=== PATIENT | female | born 1960 | race Caucasian/White ===

== ENCOUNTER 2022-05-01 09:15 | Outpatient (CLI) | payer BC ==
[~2022-05-01] VITALS: Ht 170.1 cm; Wt 85.4 kg
[2022-05-01] MEDS ORDERED: LOSA50TA63 PO (10:32)
[2022-05-01] MEDS ORDERED: FAMO40TA72 PO (10:32)
[2022-05-01] MEDS ORDERED: VNL75T PO (10:32)
== END 2022-05-01 10:56 | disposition home or self-care (01) ==
LOC: PREOP 09:15
PROVIDERS: ATTEND Surgery
DX: Z01.818 Encounter for other preprocedural examination (principal)

== ENCOUNTER 2022-05-03 12:49 | Day surgery (SDC) | payer BC ==
[2022-05-03] VITALS (8 sets, daily range): BP systolic 139–158; BP diastolic 78–93
[~2022-05-03] VITALS: Ht 170.1 cm; Wt 85.4 kg
[~2022-05-03 12:49] MED LIST: FAMO40TA72 PO; LOSA50TA63 PO; VNL75T PO
[2022-05-03] MEDS ORDERED: HYDR-3817 PO (13:00)
[2022-05-03] MEDS ORDERED: PANT40TA2 PO (13:00)
[2022-05-03] MEDS ORDERED: morphine INJ 10 MG/ML 1ML (SYR OR VIAL) IVP PRN (13:00)
[2022-05-03] MEDS ORDERED: ACETAMINOPHEN 325 MG TABLET PO PRN (13:00)
[2022-05-03] MEDS ORDERED: ONDANSETRON 4 MG/2 ML (SDV) Z0FRAN IVP PRN ×2 (13:00→16:30)
[2022-05-03] MEDS ORDERED: HYDROcodone/APAP 5 MG/325 MG (LORTAB) TAB PO ONE (13:00)
--- NOTE | 2022-05-03 13:01 | Discharge Inst-Surgical ---
D/C Lap Instructions-KIDO Reconcile Patient Problems Problems Reviewed?: Yes New, Converted, or Re-Newed RX: RX on Chart Follow Up Appt in 2 weeks Activity as tolerated No driving for 24 hours No driving while on pain medications Incentive Spirometry use every 2 hours while awake Regular Diet Symptoms to Report: Fever over 101 degree F, Nausea/Vomiting Infection Signs and Symptoms to report: Increased redness, Foul odor of wound, Increased drainage Bathing instructions: May shower Operative Area Clean/Dry; Keep incision clean/dry If any problems/questions: Contact your physician or go to Emergency Room DOYLE CARREON APRN May 03, 2022 13:01
--- NOTE | 2022-05-03 13:02 | Progress Note-Pre Operative ---
Pre-Operative Progress Note Date H&P Reviewed: May 03, 2022 Time H&P Reviewed: 13:00 History & Physical: H&P Reviewed, Patient Examed, No changes noted Pre-Operative Diagnosis: Chronic calculous cholecystitis, reflux, screening colonoscopy DOYLE CARREON APRN May 03, 2022 13:01
[2022-05-03] MEDS ORDERED: ceFAZolin INJECTION 2,000 MG in NS (IVPB) 50 ML IV ONE (14:00)
[2022-05-03] MEDS ORDERED: MIDAZOLAM 2 MG/2 ML (VERSED) VIAL ONE (14:12)
[2022-05-03] MEDS ORDERED: NEOSTIGMINE 3 MG/3 ML VIAL ONE (14:12)
[2022-05-03] MEDS ORDERED: GLYCOPYRROLATE 0.2 MG/ML (ROBINUL) 2 ML VIAL ONE (14:12)
[2022-05-03] MEDS ORDERED: fentaNYL INJ 100 MCG/2 ML AMP ONE (14:12)
[2022-05-03] MEDS ORDERED: ONDANSETRON 4 MG/2 ML (SDV) Z0FRAN ONE (14:12)
[2022-05-03] MEDS ORDERED: LIDOCAINE PF 2% 5 ML (XYLOCAINE) VIAL ONE (14:12)
[2022-05-03] MEDS ORDERED: ROCURONIUM 10 MG/ML 5 ML SYRINGE IV ONE (14:12)
[2022-05-03] MEDS ORDERED: proPOfol 200 MG/20 ML (DIPRIVAN) VIAL IV ONE (14:12)
[2022-05-03] MEDS: LACTATED RINGERS 1,000 ML IV PRN ×2 (14:19→16:50)
[2022-05-03] MEDS ORDERED: BUPIVACAINE 0.5% 30 ML (SENSORCAINE) VIAL ONE (14:52)
[2022-05-03] MEDS ORDERED: BUPIVACAINE 0.5% 30 ML (SENSORCAINE) VIAL INJ ONE (15:26)
--- NOTE | 2022-05-03 16:02 | Progress Note-Post Operative ---
Post-Operative Progess Note Surgeon (s)/Formal Service Waiter (s) Surgeon Dr. Stefan Pat M.D. Formal Service Waiter: Stevo Carreon [employer] Pre-Operative Diagnosis Chronic calculous cholecystitis, reflux, screening colonoscopy Post-Operative Diagnosis Chronic calculous cholecystitis, reflux esophagitis grade B, small hiatal hernia 2 cm in size, moderate gastritis, chronic stage II external and internal hemorrhoids Procedure & Operative Findings Date of Procedure 05/03/22 Procedure Performed/Findings Laparoscopic cholecystectomy, EGD with biopsy, Colonoscopy Anesthesia Type GET Estimated Blood Loss Estimated blood loss (mL): Minimal Specimens/Packing Specimens Removed 1) Gallbladder 2) Antrum 3) GE junction STEVO CARREON [employer] May 03, 2022 16:02
[2022-05-03] MEDS ORDERED: SEVOFLURANE (ULTANE) 15 ML INHAL SOLN ONE (16:17)
--- NOTE | 2022-05-03 16:27 | Anesthesia-General Post-Op ---
General Patient Condition Mental Status/LOC: Same as Preop Cardiovascular: Satisfactory Nausea/Vomiting: Absent Respiratory: Satisfactory Pain: Controlled Complications: Absent Post Op Complications Complications None Follow Up Care/Instructions Patient Instructions None needed. Anesthesia/Patient Condition Patient Condition Patient is doing well, no complaints, stable vital signs, no apparent adverse anesthesia problems. No complications reported per nursing. OCTAVIANO ADKINS CRNA May 03, 2022 16:27
[2022-05-03] MEDS ORDERED: PROMETHAZINE INJ 25 MG/ML (PHENERGAN) AMP IVP ONE (16:30)
[2022-05-03] MEDS ORDERED: MEPERIDINE (DEMEROL) INJ 50 MG/ML IVP ONE (16:30)
[2022-05-03] MEDS ORDERED: fentaNYL INJ 100 MCG/2 ML AMP IVP ONE (16:30)
[2022-05-03] MEDS ORDERED: HYDROcodone/APAP 5 MG/325 MG (LORTAB) TAB ONE (17:46)
--- NOTE | 2022-05-04 03:37 | OPERATIVE REPORT ---
DATE OF SERVICE: 05/03/2022 ATTENDING DRUM SANDER: Amy Rasmussen APRN PREOPERATIVE DIAGNOSES: Symptomatic chronic calculus cholecystitis, gastroesophageal reflux disease, screening colonoscopy. POSTOPERATIVE DIAGNOSES: Multiple gallstones, reflux esophagitis, [place] grade B small hiatal hernia, 2 cm in size, moderate gastritis, chronic stage II external and internal hemorrhoids. PROCEDURE: Laparoscopic cholecystectomy, EGD with biopsy, colonoscopy. SURGEON: Mariya Miguel MD MECHATRONICS TECHNOLOGIST: Stevo Ramos APRN ANESTHESIA: General endotracheal. ESTIMATED BLOOD LOSS: Minimal. FINDINGS: Multiple gallstones, reflux esophagitis, [place] grade B small hiatal hernia, 2 cm in size, moderate gastritis, chronic stage II external and internal hemorrhoids. DISPOSITION: The patient tolerated the procedure well. INDICATIONS: The patient is a 61-year-old female who has had right upper abdominal quadrant as well as epigastric pain with radiation towards the back. She states that in the past 3 months, she has had intermittent bouts of these type of symptoms. She states that she had a more severe episode and presented to the emergency department and she was found to have gallstones upon ultrasonography. She also reports that with some types of food, she will notice nausea or vomiting or abdominal distention and bloating. She also has epigastric burning sensation as well as crampy pain usually after eating spicy or greasy foods and has had issues with reflux for some time. She is also in need of a screening colonoscopy. Her last colonoscopy was greater than 10 years ago and she believes this to be normal. DESCRIPTION OF PROCEDURE: The patient was brought to the operating room, laid supine on the table. After adequate IV pain and sedative medications and general endotracheal intubation, the abdomen was prepped and draped in standard surgical fashion. 1% lidocaine with epinephrine was then used to anesthetize the overlying skin in the left upper abdominal quadrant and a transverse skin incision made using a #15 blade. An 0 silk suture was applied to the medial aspect of the incision for retraction and the Veress needle inserted with a low opening pressure of 0 mmHg and the abdomen was then insufflated to 15 mmHg pressure. The Veress needle was removed and a 5 mm XL trocar placed followed by 5 mm 45-degree angle laparoscope visualized the peritoneal cavity. A 4-quadrant abdominal exploration was performed. The gallbladder was slightly distended. No gallbladder wall thickening was visualized. The liver, stomach, small bowel was normal. Under direct visualization, we then proceeded to place a supraumbilical 10 mm port after the skin and peritoneal lining were anesthetized using 0.5% Marcaine with epinephrine and a transverse skin incision made using a #15 blade. In a similar manner, a right upper abdominal quadrant 5 mm port was placed. The patient was then placed in reverse Trendelenburg position as well as planned right side up, left side down. The fundus of the gallbladder was then retracted anteriorly and superiorly. We then proceeded with opening of the hepatoduodenal ligament using blunt dissection as well as electrocautery using the hook instrument as well as a [place] dissector. The entire critical view of safety was identified including the triangle of Calot as well as the cystic duct and artery as the only two structures going into the gallbladder as well as the cystic plate behind the proximal gallbladder. A timeout was then taken and the cystic duct and artery were then clipped proximally and distally and cut with EndoShears. The gallbladder was then dissected off of the liver bed using cautery and the hook instrument with visualization and good hemostasis as well as no leaking ducts of Luschka. The gallbladder was removed through the 10 mm port site using an EndoCatch bag. The 10 mm port site fascia and peritoneum were then closed under direct visualization using a Richie-Spring device and 0 Vicryl suture. The abdomen was then desufflated and the remaining ports were removed. All skin incisions were closed using 4-0 Monocryl running subcuticular sutures. Wounds were then cleaned and covered with Dermabond. The mouth piece was applied and the endoscope was placed in the mouth to visualize the pharynx hypopharyngeal region. Vocal cords, epiglottis and vallecula identified and appeared to be normal. Endoscope was then gently intubated into the esophagus and the esophagus was insufflated. The endoscope was then advanced through the first, second and third portions of the esophagus to the level of the GE junction and reflux esophagitis, [place] grade B identified. No ulcers or strictures identified in this region. A biopsy was taken with forceps with visualization of good hemostasis. The endoscope was then advanced into the stomach and the endoscope was retroflexed, visualizing a small hiatal hernia approximately 2 cm in size. There was a moderate severity, gastritis, which was diffuse. No ulcers, or polyps identified. A biopsy was taken to the antrum to rule out H. pylori with visualization with good hemostasis. The endoscope was then advanced through the pylorus and into the first and second portions of the duodenum, which appeared normal. The endoscope was then slowly withdrawn, taking second look and suctioning of residual air with no additional findings. The patient was then placed in a frogleg position supine and a digital rectal examination performed, which revealed chronic stage II, external and internal hemorrhoids, not actively edematous nor inflamed and no bleeding. Normal sphincter tone was felt and there were no palpable masses. The endoscope was then intubated into the anus and rectum was gently insufflated. The endoscope was then advanced through the valve with fusion of the rectum with no polyps or neoplasm was identified. We then proceeded through the sigmoid colon. There were no diverticulosis was identified. The endoscope was then advanced through the remainder of the descending, transverse and ascending colon to the cecum, which were normal. There were no polyps or any neoplasms identified throughout the colon or rectum. The endoscope was then slowly withdrawn to take a second look and suctioning of residual air with no additional findings. The patient tolerated the procedure well. We will start IV and oral pain magnification as well as clear liquid diet. Once she is tolerating clears with good pain control with oral pain medications, ambulating well. We will discharge her home where she will be instructed to do no heavy lifting or exertion for the next 2 weeks. We will also start her on Protonix 40 mg daily as well as the necessary lifestyle and dietary accommodation including small more frequent meals, avoiding eating at night as well as head elevation while lying supine. She also needs to avoid caffeinated beverages spicy, greasy and acidic foods. We will also recommend a high fiber diet with addition of fiber supplement, which are equal or exceed 25 grams daily as well as significant amounts of water to promote soft stools on a daily basis and if she is asymptomatic from a lower gastrointestinal standpoint, she does not need another colonoscopy for another 10 years. Job ID: [id number] DocumentID: [id number] Dictated Date: 05/03/2022 16:28:33 Commissioned Fire Officer Date: 05/04/2022 03:35:00 Dictated By: MARIYA MIGUEL MD
== END 2022-05-03 18:30 | disposition home or self-care (01) ==
LOC: SDC 12:49
PROVIDERS: ATTEND Surgery
DX: Z12.11 Encounter for screening for malignant neoplasm of colon (principal); K80.10 Calculus of gallbladder with chronic cholecystitis without obstruction; K21.00 Gastro-esophageal reflux disease with esophagitis, without bleeding; K44.9 Diaphragmatic hernia without obstruction or gangrene; K29.70 Gastritis, unspecified, without bleeding; K64.1 Second degree hemorrhoids; K64.4 Residual hemorrhoidal skin tags
CPT/HCPCS: 87081